=== PATIENT | male | born 1970 | race Caucasian/White ===

== ENCOUNTER → 2020-07-29 11:38 | Outpatient (CLI) | payer BC, SELFPAY ==
--- NOTE | ~2020-07-29 | XR_ITS ---
XR foot LT min 3V DATE: 07/29/2020 11:59 INDICATION: Pain at base of left great toe TECHNIQUE: 4 views COMPARISON: None FINDINGS: There is moderate osteoarthritic change at the first metatarsophalangeal joint. No fracture or dislocation, periosteal reaction or bone destruction. IMPRESSION: Osteoarthritis at first metatarsophalangeal joint Reviewed, dictated and finalized at location B. STICS ANALYST
== END ==
PROVIDERS: PCP Family Medicine; Visit Provider Family Medicine
DX: S93.529A Sprain of metatarsophalangeal joint of unspecified toe(s), initial encounter (principal); X58.XXXA Exposure to other specified factors, initial encounter; M19.072 Primary osteoarthritis, left ankle and foot
CPT/HCPCS: 73630

== ENCOUNTER → 2020-10-07 12:22 | Outpatient (CLI) | payer BC, SELFPAY ==
[2020-10-07 20:38] LABS: SARS-CoV-2 RNA PCR Negative
== END ==
PROVIDERS: PCP Family Medicine; Visit Provider Family Medicine
DX: Z20.822 Contact with and (suspected) exposure to COVID-19 (principal)
CPT/HCPCS: C9803; U0003; U0005

== ENCOUNTER 2021-01-15 09:43 | Outpatient (CLI) | payer OTHER, BC, SELFPAY ==
--- NOTE | ~2021-01-15 | MR_ITS ---
EXAMINATION: MR elbow LT wo con DATE: 01/15/2021 11:05 INDICATION: Medial elbow pain. TECHNIQUE: Magnetic resonance imaging (MRI) of the left elbow was performed without intravenous contr ast. Sequences included coronal, axial, and sagittal PD-weighted FS FSE and coronal, axial, and sagit hubert PD-weighted FSE. COMPARISON: Left forearm radiograph 01/12/2021 FINDINGS: Osseous/other: Bone alignment is normal. No fracture. The elbow joint cartilage is normal. Tendons: The brachialis tendon is normal. There is moderate biceps tendinopathy. There is mild common extensor tendinopathy. There is common flexor tendinopathy and partial tear. The tendon tear gap measures up to 1.2 cm proximal to distal. There is a skin marker overlying this area. Ligaments: Radial collateral ligament, lateral ulnar collateral ligament, and ulnar collateral ligament are norm al. Cubital tunnel: Normal. Fluid: There is no elbow joint effusion. IMPRESSION: 1. Partial tear of common flexor tendon at medial humeral epicondyle. 2. Mild tendinopathy of common extensor tendon at lateral humeral condyle. 3. Moderate biceps tendinopathy. Reviewed, dictated and finalized at location A.
== END 2021-01-15 09:44 | disposition home or self-care (01) ==
PROVIDERS: PCP Family Medicine; Visit Provider Orthopaedic Surgery
DX: S66.912A Strain of unspecified muscle, fascia and tendon at wrist and hand level, left hand, initial encounter (principal)
CPT/HCPCS: 73221

== ENCOUNTER 2021-02-22 02:38 | Day surgery (SDC) | payer BC, SELFPAY ==
[2021-02-04 12:00] VITALS: BMI 24.5
[2021-02-22 09:46] VITALS: BP 123/67; PULSE 49; RESP 14; TEMP 36.5; O2SAT 100; BMI 24.0
[2021-02-22] MEDS: LACTATED RINGERS 1,000 ML 150 ML IV CONT (09:57)
--- NOTE | 2021-02-22 10:07 | WPDGICN ---
Assessment and Plan Assessment and plan (1) GERD (gastroesophageal reflux disease): Code(s): K21.9 - Gastro-esophageal reflux disease without esophagitis Status: Inactive Assessment and Plan: Patient is a long history of GE reflux disease felt to be stable on omeprazole 20 mg p.o. daily. Plan is for EGD to assess for exclude Mejia's esophagus. (2) Epigastric abdominal pain: Code(s): R10.13 - Epigastric pain Status: Acute Assessment and Plan: Patient with recent episode of epigastric pain. This may be related to nonsteroidal anti-inflammatory agent use. Plan is for EGD to assess more thoroughly. Pain is begun to improve empirically on holding this medication. Further recommendations will be given after endoscopy. GI Consult Note Consult date/time: 02/22/21 10:07 HPI: Vamsi Merrill is a 50 year old male Presents for EGD. Patient has a history of GE reflux disease. This been present for many years. Typically has been stable on omeprazole 20 mg p.o. daily. Patient reports that approximately 1 month ago patient developed epigastric discomfort associated with abdominal bloating. Dark stools. This lasted approximately 1 week. He did supplement his omeprazole with ranitidine. This may no difference in his pain. Gradually over 1 weeks time this discomfort went away. Over the last 2-3 weeks he has noticed no discomfort everything has returned to normal. Patient has never had an endoscopy before. He presents today for EGD. Family history is noncontributory. Patient denies any bleeding or weight loss. He does report that before this episode he had muscle pain in his left arm for which he was prescribed a nonsteroidal anti-inflammatory agent. He stopped this briefly but has restarted over the recent week or 2. Review of Systems Review of Systems: All systems reviewed & are unremarkable except as noted in HPI and below PMFSH Past Medical History Medical History (Updated 02/22/21 @ 10:10 by Gilberto Figueroa MD) GERD (gastroesophageal reflux disease) Pain in left forearm Surgical History Surgical History (Updated 02/21/21 @ 14:23 by Fernando Nuno DO) History of repair of hiatal hernia Family History Family History Father Diabetes mellitus Hypertension Family history of cardiovascular disease Mother Family history of malignant neoplasm Social History Social History (Updated 02/15/21 @ 13:04 by Manuel Weber MD) Smoking status: Current some day smoker Tobacco type: smokeless tobacco Smokeless tobacco user: chewing tobacco Smoking end date: 08/13/10 Alcohol intake: current Drinks per week: 20 Living arrangements: with family Additional occupation/education comments: [employer] Gender identity (if verbalized by the patient): Male Spiritual care concerns: No Meds Home Medications and Allergies Home Medications Medication Instructions Recorded Confirmed Type magnesium 250 mg tablet 250 mg PO DAILY 01/12/21 02/22/21 History multivitamin 1 tablet PO DAILY 01/12/21 02/22/21 History omeprazole 20 mg capsule,delayed 20 mg PO BID 01/12/21 02/22/21 History release potassium 99 mg tablet 99 mg PO DAILY 01/12/21 02/22/21 History Allergies Allergy/AdvReac Type Severity Reaction Status Date / Time Penicillins Allergy Mild rash, hives Verified 02/22/21 09:45 Vital Signs Vital Signs - 24 hr 02/22/21 09:46 Temperature 97.7 F Pulse Rate 49 L Respiratory Rate 14 Blood Pressure 123/67 Pulse Oximetry 100 Exam Narrative: Exam Narrative: Physical exam reveals patient to be alert. Vital signs stable. HEENT exam is unremarkable. Patient is anicteric. Lungs are clear to auscultation and percussion. Heart is without murmur or extra sounds. Abdominal exam bowel sounds are present soft nontender with no organomegaly. Digital external rectal exam defe
--- NOTE | 2021-02-22 10:59 | WPDANESEPPF ---
Anes - Initial Pre Proc Eval Procedure: Operation Date: 02/22/21 11:00 Proposed Procedures p Esophagogastroduodenoscopy - Gilberto Figueroa MD Date/Time: 02/22/21 10:59 Surgeon: Gilberto Figueroa MD Pre Op Diagnosis: GERD Patient Data Age: 50 Gender: M Height: 1.83 m Weight: 80.4 kg Last Vital Signs Temp 36.5 C 02/22/21 09:46 Pulse 49 L 02/22/21 09:46 Resp 14 02/22/21 09:46 BP 123/67 02/22/21 09:46 Pulse Ox 100 02/22/21 09:46 Allergies Allergy/AdvReac Type Severity Reaction Status Date / Time Penicillins Allergy Mild rash, hives Verified 02/22/21 09:45 Home Medications Medication Instructions Recorded Confirmed Type magnesium 250 mg tablet 250 mg PO DAILY 01/12/21 02/22/21 History multivitamin 1 tablet PO DAILY 01/12/21 02/22/21 History omeprazole 20 mg capsule,delayed 20 mg PO BID 01/12/21 02/22/21 History release potassium 99 mg tablet 99 mg PO DAILY 01/12/21 02/22/21 History Patient hx anesthesia problems: none Family hx anesthesia problems: none PMFSH Past Medical History Medical History (Updated 02/22/21 @ 10:10 by Gilberto Figueroa MD) GERD (gastroesophageal reflux disease) Pain in left forearm Surgical History Surgical History (Updated 02/21/21 @ 14:23 by Fernando Nuno DO) History of repair of hiatal hernia Family History Family History Father Diabetes mellitus Hypertension Family history of cardiovascular disease Mother Family history of malignant neoplasm Social History Social History (Updated 02/15/21 @ 13:04 by Manuel Weber MD) Smoking status: Current some day smoker Tobacco type: smokeless tobacco Smokeless tobacco user: chewing tobacco Smoking end date: 08/13/10 Alcohol intake: current Drinks per week: 20 Living arrangements: with family Additional occupation/education comments: [employer] Gender identity (if verbalized by the patient): Male Spiritual care concerns: No Anes - Eval Final PreProcedure Day of Procedure 02/22/21 10:59 Patient weight: normal Heart: regular rate and rhythm Lungs: clear to auscultation and normal air movement Airway: Mallampati scale class II Neurological: alert and oriented Last oral intake: >/= 8 hours ASA classification: II Emergent: no Anesthetic plan: proceed Anesthesia type and monitoring: general GIVS and standard monitoring Informed Consent: The patient's anesthetic plan and its attendant risks and benefits were discussed with the patient/family/POA. Questions were solicited and answers provided to the satisfaction of the patient/family/POA.
[2021-02-22 11:44] VITALS: BP 112/64; PULSE 44; RESP 13; O2SAT 100
[2021-02-22 11:54] VITALS: BP 110/70; PULSE 42; RESP 16; O2SAT 100
[2021-02-22 12:04] VITALS: BP 134/71; PULSE 41; RESP 19; O2SAT 100
== END 2021-02-22 12:16 | disposition home or self-care (01) ==
PROVIDERS: PCP Family Medicine; Visit Provider Internal Medicine Gastroenterology
PROC: 0DJ08ZZ Inspection of Upper Intestinal Tract, Via Natural or Artificial Opening Endoscopic (ICD-10-PCS; CPT 43235; principal; 2021-02-22 11:00)
DX: K21.00 Gastro-esophageal reflux disease with esophagitis, without bleeding (principal); K22.70 Barrett's esophagus without dysplasia; F17.220 Nicotine dependence, chewing tobacco, uncomplicated
CPT/HCPCS: 43239; 87081; 88305; J2704; J7120

== ENCOUNTER → 2021-11-21 11:24 | Outpatient (CLI) | payer BC, SELFPAY ==
--- NOTE | ~2021-11-21 | XR_ITS ---
EXAM: XR foot LT min 3V HISTORY: Pain in 1st MTP joint COMPARISON: 07/29/2020. FINDINGS: Normal mineralization. No fracture or dislocation. No lytic or blastic lesion. Moderate ed int space narrowing and osteophytosis at the first MTP. No erosion or periosteal change. Soft tissues within normal limits. IMPRESSION: Moderate first MTP osteoarthritis. Reviewed, dictated and finalized at location K.
== END ==
PROVIDERS: PCP Family Medicine; Visit Provider Family Medicine
DX: M19.072 Primary osteoarthritis, left ankle and foot (principal)
CPT/HCPCS: 73630

== ENCOUNTER 2022-06-16 00:32 | Day surgery (SDC) | payer BC, SELFPAY ==
[2022-06-08 11:55] VITALS: BMI 23.9
[2022-06-16 10:06] VITALS: BP 107/76; PULSE 73; RESP 18; TEMP 36.6; O2SAT 100
--- NOTE | 2022-06-16 10:18 | PM.HPGS ---
History of Present Illness History of Present Illness Consent: Risks, benefits, and alternatives have been discussed and questions answered. Patient agrees to proceed with procedure. Chief complaint: neoplasm screening Narrative: Vamsi Merrill is a 51 year old male Presents for screening colonoscopy. Patient reports his weight appetite bowel movements are all normal. He denies abdominal pain. He has had no bleeding. Family history is noncontributory. Patient does have a past medical history of Mejia's esophagus felt to be stable on current medications. Last screening EGD was in 2020. Review of Systems Review of Systems: Review of systems noncontributory. [facility] Past Medical History Medical History GERD (gastroesophageal reflux disease) Pain in left forearm Surgical History Surgical History History of repair of hiatal hernia Family History Family History Father Diabetes mellitus Hypertension Family history of cardiovascular disease Mother Family history of malignant neoplasm Social History Social History Smoking packs per day: 1 Smoking cigarettes per day: 20.0 Years smoked: 10 Smoking pack-years: 10.00 Smoking status: Former smoker Tobacco type: smokeless tobacco Smokeless tobacco user: chewing tobacco Smoking end date: 08/13/10 Alcohol intake: current Drinks per week: 20 Alcohol use details: socially Substance use: never Living arrangements: with family Additional occupation/education comments: [employer] Gender identity (if verbalized by the patient): Male Spiritual care concerns: No Meds Home Medications and Allergies Home Medications Medication Instructions Recorded Confirmed Type magnesium 250 mg tablet 250 mg PO DAILY 01/12/21 06/08/22 History multivitamin (Daily Multi-Vitamin 1 tablet PO DAILY 01/12/21 06/08/22 History tablet) omeprazole 20 mg capsule,delayed 20 mg PO BID 01/12/21 06/08/22 History release potassium 99 mg tablet 99 mg PO DAILY 01/12/21 06/08/22 History sodium,potassium,mag sulfates 17.5 See Rx Instructions PO .COMPLEX 05/10/22 06/08/22 Rx gram-3.13 gram-1.6 gram oral soln #354 mL (Suprep Bowel Prep Kit) allopurinol 300 mg tablet 300 mg PO DAILY 06/08/22 06/08/22 History Allergies Allergy/AdvReac Type Severity Reaction Status Date / Time Penicillins Allergy Mild rash, hives Verified 06/08/22 11:52 Vital Signs Vital Signs - 24 hr 06/16/22 10:06 Temperature 97.8 F Pulse Rate 73 Respiratory Rate 18 Blood Pressure 107/76 Pulse Oximetry 100 Oxygen Delivery Room Air Exam Narrative: Physical exam reveals patient to be alert. Vital signs stable. HEENT exam is unremarkable. Patient is anicteric. Lungs are clear to auscultation and percussion. Heart is without murmur or extra sounds. Abdomen bowel sounds are present soft nontender with no organomegaly. Skin reveals multiple tattoos. Assessment and Plan Assessment and plan (1) Encounter for screening colonoscopy: Code(s): Z12.11 - Encounter for screening for malignant neoplasm of colon Status: Acute Assessment and Plan: Patient presents for screening colonoscopy. Appears to be at average risk for colon polyps. Further recommendations will be given after endoscopy. (2) Mejia's esophagus: Code(s): K22.70 - Mejia's esophagus without dysplasia Status: Acute Assessment and Plan: Patient has a history of Mejia's esophagus felt to be stable. Follow-up screening EGD suggested every 3 years. Anticipate this in 2023. Underlying GE reflux appears stable. Plan to continue current medications omeprazole 20mg p.o. daily.
[2022-06-16] MEDS: LACTATED RINGERS 1,000 ML 150 ML IV CONT (10:26)
--- NOTE | 2022-06-16 10:40 | WPDANESEPPF ---
Anes - Initial Pre Proc Eval Procedure: Operation Date: 06/16/22 11:00 Proposed Procedures p Screening Colonoscopy - Gilberto Figueroa MD Date/Time: 06/16/22 10:40 Surgeon: Gilberto Figueroa MD Pre Op Diagnosis: neoplasm screening Patient Data Age: 51 Gender: M Height: 1.83 m Weight: 75.9 kg Last Vital Signs Temp 97.8 F 06/16/22 10:06 Pulse 73 06/16/22 10:06 Resp 18 06/16/22 10:06 BP 107/76 06/16/22 10:06 Pulse Ox 100 06/16/22 10:06 O2 Del Method Room Air 06/16/22 10:06 Allergies Allergy/AdvReac Type Severity Reaction Status Date / Time Penicillins Allergy Mild rash, hives Verified 06/08/22 11:52 Home Medications Medication Instructions Recorded Confirmed Type magnesium 250 mg tablet 250 mg PO DAILY 01/12/21 06/08/22 History multivitamin (Daily Multi-Vitamin 1 tablet PO DAILY 01/12/21 06/08/22 History tablet) omeprazole 20 mg capsule,delayed 20 mg PO BID 01/12/21 06/08/22 History release potassium 99 mg tablet 99 mg PO DAILY 01/12/21 06/08/22 History sodium,potassium,mag sulfates 17.5 See Rx Instructions PO .COMPLEX 05/10/22 06/08/22 Rx gram-3.13 gram-1.6 gram oral soln #354 mL (Suprep Bowel Prep Kit) allopurinol 300 mg tablet 300 mg PO DAILY 06/08/22 06/08/22 History Patient hx anesthesia problems: none Family hx anesthesia problems: none Results Review: All pre-operative results and documents have been reviewed as part of the pre-operative evaluation. [facility] Past Medical History Medical History GERD (gastroesophageal reflux disease) Pain in left forearm Surgical History Surgical History History of repair of hiatal hernia Family History Family History Father Diabetes mellitus Hypertension Family history of cardiovascular disease Mother Family history of malignant neoplasm Social History Social History Smoking packs per day: 1 Smoking cigarettes per day: 20.0 Years smoked: 10 Smoking pack-years: 10.00 Smoking status: Former smoker Tobacco type: smokeless tobacco Smokeless tobacco user: chewing tobacco Smoking end date: 08/13/10 Alcohol intake: current Drinks per week: 20 Alcohol use details: socially Substance use: never Living arrangements: with family Additional occupation/education comments: [employer] Gender identity (if verbalized by the patient): Male Spiritual care concerns: No Anes - Eval Final PreProcedure Day of Procedure 06/16/22 10:40 Patient weight: normal Heart: regular rate and rhythm Lungs: clear to auscultation Airway: Mallampati scale class II Neurological: alert and oriented Last oral intake: >/= 8 hours ASA classification: II Emergent: no Anesthetic plan: proceed Anesthesia type and monitoring: general GIVS and standard monitoring Results Review: All pre-operative results and documents have been reviewed as part of the pre-operative evaluation. Informed Consent: The patient's anesthetic plan and its attendant risks and benefits were discussed with the patient/family/POA. Questions were solicited and answers provided to the satisfaction of the patient/family/POA.
[2022-06-16 11:04] VITALS: BP 97/62; PULSE 70; RESP 16; O2SAT 99
[2022-06-16 11:14] VITALS: BP 105/70; PULSE 60; RESP 18; O2SAT 100
[2022-06-16 11:24] VITALS: BP 110/75; PULSE 60; RESP 24; O2SAT 100
== END 2022-06-16 11:42 | disposition home or self-care (01) ==
PROVIDERS: PCP Family Medicine; Visit Provider Internal Medicine Gastroenterology
PROC: 0DJD8ZZ Inspection of Lower Intestinal Tract, Via Natural or Artificial Opening Endoscopic (ICD-10-PCS; CPT 45378; principal; 2022-06-16 11:00)
DX: Z12.11 Encounter for screening for malignant neoplasm of colon (principal); K64.8 Other hemorrhoids; K57.30 Diverticulosis of large intestine without perforation or abscess without bleeding; K21.9 Gastro-esophageal reflux disease without esophagitis; K22.70 Barrett's esophagus without dysplasia; F17.220 Nicotine dependence, chewing tobacco, uncomplicated
CPT/HCPCS: 45378; J2704; J7120

== ENCOUNTER 2025-02-20 01:02 | Day surgery (SDC) | payer BC, SELFPAY ==
[2025-02-02 11:36] VITALS: BMI 23.7
--- OUTSIDE RECORDS SUMMARY | 2025-02-20 01:06 | XMS_ITS | Clinical Summary ---
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 Gender Identity Not on file Sexual Orientation Not on file Plan of Treatment Health Maintenance Due Date Last Done Comments Hepatitis C Virus (HCV) Screening 1971 Hepatitis B Immunization (1 of 3 - 19+ 3-dose series) 1990 Colonoscopy 2016 Colorectal Cancer Screening 2016 Cologuard 2021 Immunochemical Fecal Occult Blood 2021 Pneumococcal Immunization (5 0+ years) (1 of 1 - PCV) 2021 Zoster Immunization (1 of 2) 2021 Influenza Immunization (#1) 2024 10/0 08/2020, 06/09/2020 SARS-COV-2 Immunization ( season) 2024 07/05/2021, 11/28/2020, 11/07/2020 Respiratory Syncytial Virus (RSV) Immunization (Adult) (1 - 1-dose 75+ series) 2046 DTaP/Tdap/Td Immunization Discontinued 08/26/2014 TdaP Immunization Completed 08/26/2014 Meningococcal Immunization (ACWY) Aged Out No longer eligible based on patient's age to complete this topic Pneumococcal Immunization Combined Aged Out No longer eligible based on patient's age to complete this topic Rotavirus Immunization Aged Out No lo nger eligible based on patient's age to complete this topic
--- OUTSIDE RECORDS SUMMARY | 2025-02-20 01:06 | XMS_ITS | Continuity of Care Document ---
Author Organization [facility] Address [address] [facility] [address] [place] [address] Phone Care Team Providers Care Dispatch Associate Name Role Phone Raza Pleitez Unavailable Unavailable Procedures Procedure Date Eye Exam, New Patient Advance Directives Directive Yes / No Effective Date File Name No Information Encounters Encounter Description Practice Location Reason(s) For Visit Diagnoses Date Provider Providers Copied on Encounter [facility], [address], [place], [place], [id number], [place] tel:[phone] [facility] No Information [phone]. [address] [facility] [address], [place], [address], [place]. tel:[phone] Family History Family Member Type Diagnosis Age At Onset No Information Payers Payer name Insurance type Covered green party ID Authoriza tion(s) No Information Social History Type Description Quantity Date Captured Comments Sex Male Smoking Status No Information Chief Complaint And Reason For Visit No Information Reason For Referral Reason For Referral No Information History Of Present Illness Encounter Date Complaint History Of Prese nt Illness No Information Functional Status Date Functional Assessmen t No Information Instructions Date Instruction Additional Infor mation No Information Assessments Type Assessment Date No Information Patient Care Teams Name Effective Dates (start - stop) Status Members No Information
--- OUTSIDE RECORDS SUMMARY | 2025-02-20 01:06 | XMS_ITS | Data Portability ---
Author Organization [place] - [facility] [employer], Main Office Address [address] [place] [address] Care Team Providers Care Flight Controls Engineer Name Role Phone TERESITA ENNIS Primary Care Provider TERESITA ENNIS Referring Provider [phone] Assessment Encounter Date Assessment Date Assessment LastModified by Organization Details LastModified Time 02/28/2023 02/28/2023 52-year-old patient presents today with left shoulder pain that started about a week ago. He denies any injury. He has not had any issues with this shoulder in the past. Majority of his pain comes from overhead lifting and reaching behind his back. he has not tried any treatment at this time. Review of systems per patient questionnaire Imaging: X-rays reviewed show no acute bony abnormality, no fracture. Preserved joint space throughout. Physical exam: No tenderness to palpation around the shoulder. Range of motion without limitations, 150/30/lower lumbar. He has 5/5 strength with rotator cuff testing. He did have soreness with resisted elevation. Positive Jass sign. Negative Neer, Garza. Negative Speed, Yergason's. Neurovascular intact throughout. We will start with a course of physical therapy to help stretch and strengthen his shoulder. For anti-inflammatory therapy he would like to take ibuprofen. We can see him back in 4-6 weeks to check his progress. He is in agreement with this plan. [email or web address] Not available 03/02/2023 21:52:31 04/11/2023 04/11/2023 52-year-old male presents for follow-up of left shoulder. He has shoulder pain that we treated conservatively with anti-inflammatori es and physical therapy. He reports he is feeling better, currently rates pain as 2/10. He has improved range of motion, still has some soreness. He has 1 more session of PT, then plans to transition to home exercises. He is taking ibuprofen. He also has new complaint of right elbow pain. This is located over the lateral epicondyle. He has noticed a bony prominence over the lateral epicondyle and also has pain with lifting. Denies any acute injury. No tenderness palpation around the shoulder. Range of motion 150/30/lower lumbar. 5/5 rotator cuff strength. Negative Neer, Garza. Negative belly press, jass. For the right elbow, he has a bony prominence over the lateral epicondyle with tenderness over the origin. He has pain with resisted wrist extension. We will have him continue his exercises for the shoulder, as he is progressing. With regards lateral epicondylitis, we will give him the exercises handout, he may do some therapy for that as well. He can also take anti-inflammatori es and wear counterforce strap. We will have him follow-up on a as needed basis. We discussed the next steps for his shoulder would be a cortisone injection or MRI if he did not continue to improve. [email or web address] Not available 04/11/2023 09:53:15 Plan of Treatment Reminders Order Date Submit Date Provider Last Modified By Organization Details Last Modified Time Details Appointments None recorded. Lab None recorded. Referral physical therapist referral - Please contact pt for L shoulder pain. thanks 2022 023 [facility] [place], [facility] [place], [address], 11:50:34 Procedures None recorded. Surgeries None recorded. Imaging XR, shoulder, 2 or more view 2022 023 [email or web address] [facility] [place], [address], [place], [address], 15:44:37 Medication Orders None recorded. Patient TargetsNo targets recorded. Patient InstructionsNo instructions recorded. Reason for Referral Physical Therapist Referral for Pain of left shoulder joint Please contact pt for L shoulder pain. thanks Referring Physician: Allie Trujillo, Orthopedic Surgery, Encounter Date: 02/28/2023 Results Created Date Observation Date Name Description Value Unit Range Abnormal Flag Note LastModifiedBy Organization Detail LastModifiedTime 02/29/20 23 XR, shoul derian, 2 or more view No observ ation record ed. [email or web address] [facility] [address], [place], [address], 03/02/2023 21:41:49 Result Notes None recorded. Problems Name Problem SNOMED Code Status Onset Date Resolution Date Notes Provider Name and Address Organization Details Recorded Time Pain of left shoulder joint [id number] 09 Active 2022 [facility] [employer] [facility] 10:24:33 Problem Notes None recorded. Procedures Surgical History Date Name Laterality Status Provider Name and Address Organization Details Recorded Time 9 Knee Replacement completed CANDY Castle [facility] [employer] [facility] 02/28/2023 10:23:52 Hernia Surgery completed CANDY Castle [facility] [employer] [facility] 02/28/2023 10:24:08 Imaging Results None recorded. Procedure Notes None recorded. Medical Equipment None Reported. Allergies Allergen ID Allergen Name Allergen Category Reaction Reaction Severity Criticality Documentation Date Start Date Code Code System Note Provider Name and Address Organization Details Recorded Time 17662 penicilla mine medicatio n Not available Not available Not available 02/28/2023 7975 RxNorm CANDY Castle, [facility] [employer] [facility] 10:22:29 Medications Name Sig Start Date Stop Date Status Note LastModified by Organization Details LastModified Time omeprazole 20 mg capsule,delay ed release active Not Available Not Available N ot Available allopurinol 300 mg tablet active Not Available Not Availabl e Not Available sodium,potass ium,mag sulfates 17.5 gram-3.13 gram-1.6 gram oral soln TAKE DIRECTED active Not Available Not Available No t Available [employer] COVID-19 Ag Self Test kit Use as Directed on the Package active Not Available Not Available No t Available Vitals Date Recorded Body height Body mass index (BMI) Body weight Provider Name and Address Organization Details Last Updated DateTime 02/28/2023 182.88 cm 23.7 kg/m2 51532.66 CANDY Rois [employer] 02/28/2023 10:22:18 Date Recorded Body height Body mass index (BMI) Body weight Provider Name and Address Organization Details Last Updated DateTime 04/11/2023 182.88 cm 23.5 kg/m2 60888.48 oksana Lopez, ATC L [employer] 04/11/2023 09:25:01 Social History Question Answer Notes LastModified by Organizat ion Details LastModified Time Tobacco Smoking Status Current Every Day Smoker CANDY Castle null, [employer] 02/28/2023 10:23:40 What Was The Date Of Your Most Recent Tobacco Screening? 02/28/2023 Information not available 02/28/2023 How Much Tobacco Do You Smoke? 1 PPD [email or web address] Information not available 02/28/2023 Sex: Unknown Functional Status None recorded. Mental Status None recorded. Family History Relationship Description Onset Age of this Age Resolved Age Notes LastModified by Organization Details LastModified Time Mother Family history of malignant neoplasm [email or web address] Not available 2022 10:22:56 Father Diabetes mellitus [email or web address] Not available 2022 10:23:03 Medical History No medical history recorded. Past Encounters Encounter ID Performer Location Encounter Start Date Encounter Closed Date Diagnosis/Indication Diagnosis SNOMED-CT Code Diagnosis ICD10 Code Diagnosis Note [id number] Allie Trujillo NP [facility] [place] [address] [place] [address] 02/28/2023 09:57:45 02/28/2023 11:15:54 Pain of left shoulder joint [id number] M25.704 [id number] Neo Jimenez MD [facility] [place] [address] [place] [address] 04/11/2023 09:22:27 04/11/2023 09:34:08 Pain of left shoulder joint [id number] M25.512 Health Concerns Section Related Observation LastModified by Organization Detai ls LastModified Time None Recorded Concern Status LastModified by Organization Details LastModified Time None Recorded Advance Directives Directive None Recorded Payers Insurance Date Sequence Insurance Name Policy Number Policy Zacarias Covered Member ID Zacarias Member ID Guarantor Name 04/09/2023 1 SANDEEP (PPO) [id number] Vamsi Merrill [id number] Vamsi Merrill
--- OUTSIDE RECORDS SUMMARY | 2025-02-20 01:06 | XMS_ITS | Clinical Summary ---
Author Organization [facility] Address [address] [place] [id number] Care Team Providers Care Cable Driller Name Role Phone Unavailable Primary Care Provider Unavailabl e Social History Tobacco Use Types Packs/Day Years Used Date Smoking Tobacco: Never Assessed Sex and Gender Information Value Date Recorded Sex Assigned at Not on file Legal Sex Male 7:49 PM CDT Gender Identity Not on file Sexual Orientation Not on file Plan of Treatment Health Maintenance Due Date Last Done Comments Colorectal Cancer Screening Colonoscopy (10 Years) 1971 Annual Physical 1974 Hepatitis C 1989 DTaP, Tdap and Td Vaccines ( 1 - Tdap) 1990 Hepatitis B Vaccines (1 of 3 - 19+ 3-dose series) 1990 Pneumococcal Vaccine: 50+ Ye ars (1 of 1 - PCV) 2021 Zoster Vaccines (1 of 2) 2021 COVID-19 Vaccine (2023-2 5 season) 2024 Meningococcal B Vaccine Aged Out No l onger eligible based on patient's age to complete this topic Meningococcal Vaccine Aged Out No tori carol eligible based on patient's age to complete this topic RSV Immunizations Under 20 Months Aged Out No longer eligible based on patient's age to complete this topic
--- OUTSIDE RECORDS SUMMARY | 2025-02-20 01:06 | XMS_ITS | Referral Summary ---
Author Organization [facility] [place] Address [address] [place] [address] Care Team Providers Care Harvesting Manager Name Role Phone Raymundo Sifuentes MD Primary Care Provider [phone] Allergies Active Allergy Reactions Criticality Noted Date Comments Penicillins Hives Medium 11/07/2018 Medications omeprazole (PriLOSEC) 20 mg capsule Take 20 mg by mouth daily Active allopurinoL (ZYLOPRIM) 300 mg tablet 11/30/2021 Active meloxicam (MOBIC) 15 mg tablet 06/16/2024 Active Active Problems Problem Noted Date Diagnosed Date Aftercare following right knee joint replacement surgery 11/21/2018 Status post total knee replacement, right 2018 Encounter for removal of holden 11/21/2018 Social History Tobacco Use Types Packs/Day Years Used Date Smoking Tobacco: Former Cigarettes Q uit: 08/13/2006 Smokeless Tobacco: Current Snuff, Chew Tobacco Cessation:Ready to Q uit: No; Counseling Given: Not Answered Alcohol Use Standard Drinks/Week Comments Yes 0 (1 standard drink = 0.6 oz pur e alcohol) AUDIT-C Answer Date Recorded Frequency of Alcohol Consumption Monthly or less 11/21/2018 Average Number of Drinks Not on file 019 Frequency of Binge Drinking Not on file 11/11 Sex and Gender Information Value Date Recorded Sex Assigned at Not on file Legal Sex Male 8:26 PM APPRENTICE COSMETOLOGIST Gender Identity Not on file Sexual Orientation Not on file Occupation Industry Job Start Date Job End Date [employer] Not on file Not on file Not on f ile Last Filed Vital Signs Vital Sign Reading Time Taken Comments Blood Pressure 132/80 10/03/2022 12:55 PM APPRENTICE COSMETOLOGIST Pulse 59 10/03/2022 12:55 PM APPRENTICE COSMETOLOGIST Temperature 36.4 C (97.5 F) 10/03/2022 9:30 AM APPRENTICE COSMETOLOGIST Respiratory Rate 16 10/03/2022 12:55 PM APPRENTICE COSMETOLOGIST Oxygen Saturation 100% 10/03/2022 12:55 PM APPRENTICE COSMETOLOGIST Inhaled Oxygen Concentration - - Weight 78.5 kg (173 lb) 06/17/2024 9:38 AM APPRENTICE COSMETOLOGIST Height 182.9 cm (6') 06/17/2024 9:38 AM APPRENTICE COSMETOLOGIST Body Mass Index 23.46 06/17/2024 9:38 AM APPRENTICE COSMETOLOGIST Plan of Treatment Not on file Insurance [place] 911 View [facility] 911 View [place] 911 [place] WORKERS COMPENSATION GENERIC THIRD ALLIANCE PARTY LIABILITY - GENERIC THIRD [employer]Y LIABILITY - GENERIC WORKERS [place] [address] [place] [address] Care Teams Harvesting Manager Relationship Specialty Start Date End Date Raymundo Sifuentes MD [address] [place] [address] PCP - General 10/09/18
--- OUTSIDE RECORDS SUMMARY | 2025-02-20 01:06 | XMS_ITS | Clinical Summary ---
Author Organization [facility] [place] Address [address] [place] [address] Care Team Providers Care Boilermaker Name Role Phone Raymundo Sifuentes MD Primary Care Provider [phone] Allergies Active Allergy Reactions Criticality Noted Date [...] 2018 Encounter for removal of holden 11/21/2018 Surgical History Surgery Date Site/Laterality Comments TOTAL KNEE ARTHROPLASTY 11/07/2018 Right HERNIA REPAIR KNEE ARTHROSCOPY 1995, 2001 Right NOSE SURGERY JOINT REPLACEMENT 11/07/2018 Medical History Medical History Date Comments Gastric reflux Osteoarthritis GERD (gastroesophageal reflux disease) 2014 Family History Medical History Relation Name Comments Arthritis Father Brian Atrial fibrillation Father Brian Diabetes Father Brian Ovarian cancer Mother Asthma Sister Carmen Hyperlipidemia Sister Carmen Relation Name Status Comments Daughter Alive Father Brian Alive Mother Sister Carmen Alive Social History Tobacco Use Types Packs/Day Years [...] on file Legal Sex Male 8:26 PM ANALYTICAL CHEMIST Gender Identity Not on file Sexual Orientation Not on file Occupation Industry Job Start Date Job End Date [employer] Not on file Not on file Not on f ile Obstetrics History Last Filed Vital Signs Vital Sign Reading Time Taken Comments Blood Pressure 132/80 10/03/2022 12:55 PM ANALYTICAL CHEMIST Pulse 59 10/03/2022 12:55 PM ANALYTICAL CHEMIST Temperature 36.4 C (97.5 F) 10/03/2022 9:30 AM ANALYTICAL CHEMIST Respiratory Rate 16 10/03/2022 12:55 PM ANALYTICAL CHEMIST Oxygen Saturation 100% 10/03/2022 12:55 PM ANALYTICAL CHEMIST Inhaled Oxygen Concentration - - Weight 78.5 kg (173 lb) 06/17/2024 9:38 AM ANALYTICAL CHEMIST Height 182.9 cm (6') 06/17/2024 9:38 AM ANALYTICAL CHEMIST Body Mass Index 23.46 06/17/2024 9:38 AM ANALYTICAL CHEMIST Plan of Treatment Health Maintenance Due Date Last Done Comments Colon Cancer Screening-Colonoscopy 1971 Depression Screening 1971 Hepatitis C Screening 1971 Prostate Cancer Screening-PSA 1971 Hepatitis B Screening 1989 Regular Well Visit/Exam 18-64 1989 Zoster Vaccine (1 of 2) 2021 DTaP/Tdap/Td Vaccine (2 - Td or Tdap) 08/26/2024 08/26/2014 Influenza Vaccine (Season Ended) 2025 08/23/19 13 Pneumococcal vaccine <65 Aged Out No longer eligible based on patient's age to complete this topic Insurance [facility] BLUE ACCESS OOS BLUE ACCESS [place] BLUE [place]ESS [place] WORKERS COMPENSATION GENERIC THIRD LIBERTARIAN LIABILITY - GENERIC THIRD LIBERTARIAN LIABILITY - GENERIC WORKERS COMPENS[place] [address] Care Teams Boilermaker Relationship Specialty Start Date End Date Raymundo Sifuentes MD [address] [place] [id number] PCP - General 10/09/18
[2025-02-20 13:25] VITALS: BP 135/82; PULSE 49; RESP 18; TEMP 36.6; O2SAT 100
--- NOTE | 2025-02-20 13:38 | P.PNAN_ITS ---
Anes - Initial Pre Proc Eval Procedure: Operation Date: 02/20/25 14:30 Proposed Procedures p Esophagogastroduodenoscopy - Noel Islas MD Date/Time: 02/20/25 13:38 Surgeon: Noel Islas MD Pre Op Diagnosis: Mejia's esophagus without dysplasia Patient Data Age: 54 Gender: M Height: 1.83 m Weight: 78.4 kg Last Vital Signs Temp 97.8 F 02/20/25 13:25 Pulse 49 L 02/20/25 13:25 Resp 18 02/20/25 13:25 BP 135/82 02/20/25 13:25 Pulse Ox 100 02/20/25 13:25 O2 Del Method Room Air 02/20/25 13:25 Allergies Allergy/AdvReac Type Severity Reaction Status Date / Time Penicillins Allergy Mild rash, hives Verified 02/20/25 13:23 Home Medications ?Medication ?Instructions ?Recorded ?Confirmed ?Type magnesium 250 mg tablet 250 mg PO DAILY 01/12/21 02/20/25 History multivitamin (Daily Multi-Vitamin 1 tablet PO DAILY 01/12/21 02/20/25 History tablet) mecobalamin (vitamin B12) 5,000 5,000 mcg PO DAILY 11/27/24 02/20/25 History mcg chewable tablet meloxicam 15 mg tablet 15 mg PO DAILY 11/27/24 02/20/25 History omeprazole 20 mg capsule,delayed 20 mg PO DAILY #90 caps 12/01/24 02/20/25 Rx release allopurinol 300 mg tablet 300 mg PO DAILY #90 tabs 02/18/25 02/20/25 Rx Patient hx anesthesia problems: none Family hx anesthesia problems: none Results Review: All pre-operative results and documents have been reviewed as part of the pre- operative evaluation. [facility] Past Medical History Medical History Gastro-esophageal reflux disease without esophagitis Osteoarthritis of right knee Gouty arthropathy Mejia's esophagus without dysplasia Surgical History Surgical History History of knee replacement, total History of repair of hiatal hernia Family History Family History (Updated 11/27/24 @ 11:15 by Raymundo Sifuentes MD) Father Diabetes mellitus Hypertension Family history of cardiovascular disease Mother , age 45 of ovarian cancer Ovarian cancer Sibling No problems noted. Social History Social History (Updated 11/27/24 @ 11:17 by Raymundo Sifuentes MD) Smoking packs per day: 1 Smoking cigarettes per day: 20.0 Years smoked: 10 Smoking pack-years: 10.00 Smoking status: Former smoker Tobacco type: cigarettes Smokeless tobacco user: chewing tobacco Smoking end date: 08/13/10 Alcohol intake: current Drinks per week: 12 Alcohol use details: socially Substance use: never Substance use type: does not use Lack of Transportation: No Lack of Food: Never True Current Housing: I Have Housing Concerned About Future Housing: No Difficulty Paying Gas/Electric Bills: No Difficulty Paying for Meds: No Currently Unemployed: YES Education: High School Diploma/GED Difficulty w/ Childcare or Family Care: No Living arrangements: with family Occupation/Education: occupation 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[employer] Gender identity (if verbalized by the patient): Male Sexual Orientation (if Verbalized by the Patient): Straight or Heterosexual Spiritual care concerns: No Anes - Eval Final PreProcedure Day of Procedure 02/20/25 13:38 Patient weight: normal Heart: regular rate and rhythm Lungs: clear to auscultation Airway: Mallampati scale class II Neurological: alert and oriented Last oral intake: >/= 8 hours ASA classification: II Emergent: no Anesthetic plan: proceed Anesthesia type and monitoring: general GIVS and standard monitoring Results Review: All pre-operative results and documents have been reviewed as part of the pre- operative evaluation. Informed Consent: The patient's anesthetic plan and its attendant risks and benefits were discussed with the patient/family/POA. Questions were solicited and answers provided to the satisfaction of the patient/family/POA.
[2025-02-20] MEDS: LACTATED RINGERS 1,000 ML 150 ML IV CONT (13:40)
[2025-02-20] MEDS: SIMETHICONE ORAL SUSPENSION 20 MG/0.3 ML 30 ML BOTTLE 1.8 ML PO (13:43)
--- NOTE | 2025-02-20 13:54 | PM.IMHP ---
H&P: [facility] History of Present Illness Date/Time: 02/20/25 13:54 Chief Complaint: History of Mejia's esophagus Narrative: the patient has a history of Mejia's esophagus as per EGD many years ago. His reflux is currently being well controlled on omeprazole 20 mg q.d.. He has no dysphagia or recurrent heartburn symptoms. He is here for follow-up EGD and biopsies. Review of Systems Review of Systems: All systems reviewed & are unremarkable except as noted in HPI and below [facility] Past Medical History Medical History Gastro-esophageal reflux disease without esophagitis Osteoarthritis of right knee Gouty arthropathy Mejia's esophagus without dysplasia Surgical History Surgical History History of knee replacement, total History of repair of hiatal hernia Family History Family History (Updated 11/27/24 @ 11:15 by Raymundo Sifuentes MD) Father Diabetes mellitus Hypertension Family history of cardiovascular disease Mother , age 45 of ovarian cancer Ovarian cancer Sibling No problems noted. Social History Social History (Updated 11/27/24 @ 11:17 by Raymundo Sifuentes MD) Smoking packs per day: 1 Smoking cigarettes per day: 20.0 Years smoked: 10 Smoking pack-years: 10.00 Smoking status: Former smoker Tobacco type: cigarettes Smokeless tobacco user: chewing tobacco Smoking end date: 08/13/10 Alcohol intake: current Drinks per week: 12 Alcohol use details: socially Substance use: never Substance use type: does not use Lack of Transportation: No Lack of Food: Never True Current Housing: I Have Housing Concerned About Future Housing: No Difficulty Paying Gas/Electric Bills: No Difficulty Paying for Meds: No Currently Unemployed: YES Education: High School Diploma/GED Difficulty w/ Childcare or Family Care: No Living arrangements: with family Occupation/Education: occupation 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[employer] Gender identity (if verbalized by the patient): Male Sexual Orientation (if Verbalized by the Patient): Straight or Heterosexual Spiritual care concerns: No Meds Home Medications and Allergies Home Medications ?Medication ?Instructions ?Recorded ?Confirmed ?Type magnesium 250 mg tablet 250 mg PO DAILY 01/12/21 02/20/25 History multivitamin (Daily Multi-Vitamin 1 tablet PO DAILY 01/12/21 02/20/25 History tablet) mecobalamin (vitamin B12) 5,000 5,000 mcg PO DAILY 11/27/24 02/20/25 History mcg chewable tablet meloxicam 15 mg tablet 15 mg PO DAILY 11/27/24 02/20/25 History omeprazole 20 mg capsule,delayed 20 mg PO DAILY #90 caps 12/01/24 02/20/25 Rx release allopurinol 300 mg tablet 300 mg PO DAILY #90 tabs 02/18/25 02/20/25 Rx Allergies Allergy/AdvReac Type Severity Reaction Status Date / Time Penicillins Allergy Mild rash, hives Verified 02/20/25 13:23 Vital Signs Vital Signs - 24 hr 02/20/25 13:25 Temperature 97.8 F Pulse Rate 49 L Respiratory Rate 18 Blood Pressure 135/82 Pulse Oximetry 100 Oxygen Delivery Room Air Exam Const: General: cooperative and healthy appearing Resp: Effort & Inspection: normal respiratory effort and able to speak in complete sentences Auscultation: clear to auscultation bilaterally Cardio: Rate: regular rate Rhythm: regular rhythm GI: Inspection: normal to inspection GI Palp: No No hepatosplenomegaly present Auscultation: normal bowel sounds Rectal Exam: deferred Skin: General skin exam: normal color Psych: Appearance: grossly normal Mental Status: mental status grossly normal Assessment and Plan Assessment and plan (1) Mejia's esophagus: Qualifiers: Mejia's esophagus type: without dysplasia Qualified Code(s): K22.70 - Mejia's esophagus without dysplasia Code(s): K22.70 - Mejia's esophagus without dysplasia Status: Acute Assessment and Plan: The patient is deemed a good candidate for the procedure. Consent signed. Will proceed.
[2025-02-20] MEDS: BENZOCAINE (*SP) 60 ML SPRAY CAN (HURRICAINE) 1 SPRAY MUCOUS MEM (14:00)
[2025-02-20 14:18] VITALS: BP 100/55; PULSE 53; RESP 20; O2SAT 98
--- NOTE | 2025-02-20 14:19 | S_PTH ---
PATIENT: Vamsi Merrill LOC: [facility] #:[id number] AGE/SX: 54/M ROOM: RE02/20/[address]: Noel Islas MD : 1970 BED: DIS: 02/20/2025 SPEC #: [id number] RECD: 02/23/25 08:08 STATUS: ARNEL REQ #: [id number] JESUS MANUEL: 02/20/25 14:[address]: Noel Islas DEPT: [facility] Surgical RECD BY: Gonzalez Vargas ENTERED: 02/23/25 08:09 SP TYPE: Surgical OTHR DR: Raymundo Sifuentes MD Tissues: A - Esophageal Biopsy Procedures: Hematoxylin and Eosin Stain Gross and Microscopic Level 4
[2025-02-20 14:28] VITALS: BP 106/63; PULSE 54; RESP 20; O2SAT 100
[2025-02-20 14:38] VITALS: BP 111/69; PULSE 46; RESP 19; O2SAT 100
== END 2025-02-20 14:48 | disposition home or self-care (01) ==
PROVIDERS: PCP Family Medicine; Referring Provider Family Medicine; Visit Provider Internal Medicine Gastroenterology
PROC: 0DJ08ZZ Inspection of Upper Intestinal Tract, Via Natural or Artificial Opening Endoscopic (ICD-10-PCS; CPT 43239; principal; 2025-02-20 14:30)
DX: K22.70 Barrett's esophagus without dysplasia (principal); K21.9 Gastro-esophageal reflux disease without esophagitis; M17.11 Unilateral primary osteoarthritis, right knee; F17.220 Nicotine dependence, chewing tobacco, uncomplicated; Z98.890 Other specified postprocedural states; Z80.41 Family history of malignant neoplasm of ovary; Z82.49 Family history of ischemic heart disease and other diseases of the circulatory system
CPT/HCPCS: 43239; 88305; J2003; J2704; J7120